=== PATIENT | male | born 1930 | race Caucasian/White ===

== ENCOUNTER → 2016-08-27 | Outpatient (CLI) | payer MEDICARE | END | disposition home or self-care (01) | LOC: PCVCCLINIC 15:30 | PROVIDERS: ATTEND Internal Medicine Cardiovascular Disease | DX: I65.23 Occlusion and stenosis of bilateral carotid arteries (principal); I10 Essential (primary) hypertension; I73.9 Peripheral vascular disease, unspecified; E78.2 Mixed hyperlipidemia; I49.3 Ventricular premature depolarization; J44.9 Chronic obstructive pulmonary disease, unspecified; E78.00 Pure hypercholesterolemia, unspecified; Z85.46 Personal history of malignant neoplasm of prostate; Z86.73 Personal history of transient ischemic attack (TIA), and cerebral infarction without residual deficits; Z87.891 Personal history of nicotine dependence; Z88.0 Allergy status to penicillin; Z88.1 Allergy status to other antibiotic agents; Z91.013 Allergy to seafood; Z88.8 Allergy status to other drugs, medicaments and biological substances; Z79.82 Long term (current) use of aspirin; Z79.899 Other long term (current) drug therapy | CPT/HCPCS: 93005; G0463 ==

== ENCOUNTER → 2017-02-20 | Outpatient (CLI) | payer MEDICARE | END | disposition home or self-care (01) | LOC: PCVCCLINIC 13:32 | PROVIDERS: ATTEND Internal Medicine | DX: I25.10 Atherosclerotic heart disease of native coronary artery without angina pectoris (principal); I65.23 Occlusion and stenosis of bilateral carotid arteries; I10 Essential (primary) hypertension; E78.5 Hyperlipidemia, unspecified; I49.3 Ventricular premature depolarization; I73.9 Peripheral vascular disease, unspecified; J43.9 Emphysema, unspecified; Z87.891 Personal history of nicotine dependence; Z79.82 Long term (current) use of aspirin; Z79.899 Other long term (current) drug therapy | CPT/HCPCS: 80061; 93005; G0463 ==

== ENCOUNTER → 2017-09-11 | Outpatient (CLI) | payer MEDICARE | END | disposition home or self-care (01) | LOC: PCVCCLINIC 10:50 | DX: I25.10 Atherosclerotic heart disease of native coronary artery without angina pectoris (principal); I65.23 Occlusion and stenosis of bilateral carotid arteries; I10 Essential (primary) hypertension; E78.5 Hyperlipidemia, unspecified; I49.3 Ventricular premature depolarization; I73.9 Peripheral vascular disease, unspecified; J43.9 Emphysema, unspecified; Z79.82 Long term (current) use of aspirin | CPT/HCPCS: 93005; G0463 ==

== ENCOUNTER → 2018-03-15 | Outpatient (CLI) | payer MEDICARE | END | disposition home or self-care (01) | LOC: PCVCCLINIC 14:10 | PROVIDERS: ATTEND Internal Medicine | DX: I25.10 Atherosclerotic heart disease of native coronary artery without angina pectoris (principal); R94.31 Abnormal electrocardiogram [ECG] [EKG]; I65.23 Occlusion and stenosis of bilateral carotid arteries; I10 Essential (primary) hypertension; I49.3 Ventricular premature depolarization; I73.9 Peripheral vascular disease, unspecified; J43.9 Emphysema, unspecified; E78.5 Hyperlipidemia, unspecified; E78.00 Pure hypercholesterolemia, unspecified; Z79.82 Long term (current) use of aspirin; Z79.899 Other long term (current) drug therapy; Z88.0 Allergy status to penicillin; Z87.891 Personal history of nicotine dependence | CPT/HCPCS: 36415; 80061; 93005; G0463 ==

== ENCOUNTER → 2018-09-13 | Outpatient (CLI) | payer MEDICARE ==
[~2018-09-13] MED LIST: ROCURONIUM 50 MG/5 ML VIAL. ONE; SUCCINYLCHOLINE 200 MG/10 ML VIAL. ONE
== END | disposition home or self-care (01) ==
LOC: PCVCCLINIC 11:00
PROVIDERS: ATTEND Internal Medicine
DX: I65.23 Occlusion and stenosis of bilateral carotid arteries (principal); I25.10 Atherosclerotic heart disease of native coronary artery without angina pectoris; I10 Essential (primary) hypertension; I73.9 Peripheral vascular disease, unspecified; I49.3 Ventricular premature depolarization; J43.9 Emphysema, unspecified; E78.00 Pure hypercholesterolemia, unspecified; Z88.1 Allergy status to other antibiotic agents; Z79.82 Long term (current) use of aspirin; Z87.891 Personal history of nicotine dependence
CPT/HCPCS: 36415; 80061; 93005; G0463; J0330